=== PATIENT | male | born 1950 | race Caucasian/White ===

== ENCOUNTER 2019-07-02 06:27 | Day surgery (SDC) | payer MEDICARE, BC ==
--- NOTE | 2019-07-01 12:33 | NUR ---
EKG COMPLETE ACUTE ID/STEMI NOTED NOTIFIED ANESTHESIA-DR URRUTIA. DR PATTEN CAME SHORTLY TO RM 1. ORDERS GIVEN PLACED ON 4L NC AND CALLED PHARMACY FOR ASA 325MG. KENDALL WATSON CALLED CARDIOLOGY PER DR PATTEN REQUEST. DR PATTEN SPOKE WITH DR YOON. ST TOVAR STATED HE WAS IN A CASE AT PRESENT TIME BUT WOULD COME OVER SHORTLY.
--- NOTE | 2019-07-01 13:00 | NUR ---
ASA PO GIVEN TO PT PT HAS NO SYMPTOMS OR HX OF HEART PROBS. DR YOON CALLED TO [facility] DEPT REQUEST EKG BE FAXED TO [facility]. EKG FAXED PER RAMSES NEGRON.
--- NOTE | 2019-07-01 13:05 | NUR ---
JAMIL TO RM1 INFORMED THIS NURSE THAT KARRIE CLEARED EKG WAS A RIGHT BUNDLE BRANCH BLOCK TOOK PT TO LAB PER DR PATEL'S ORDER.
[2019-07-01 13:25] LABS: BASOPHILS 0.3 % (0-2); HEMATOCRIT 47.9 % (42.0-54.0); HEMOGLOBIN 15.6 g/dL (13.5-17.5); IMMATURE GRANULOCYTES 0.2 % (0-5); LYMPHOCYTES 33.3 % (15-50); MCH 29.4 pg (26.0-34.0); MCHC 32.6 g/dL (31.0-37.0); MCV 90.4 fL (80.0-100.0); MEAN PLATELET VOLUME 10.4 fL (7.4-10.4); MONOCYTES 6.7 % (2-11); NEUTROPHILS 54.5 % (40-80); PLATELET COUNT 162 10x3/uL (130-400); RDW 12.8 % (11.5-14.5); WBC 6.2 10x3/uL (4.8-10.8)
[2019-07-01 13:54] LABS: CALC OSMOLALITY 277 mosm/kg (275-300); CALCIUM 8.9 mg/dL (8.5-10.1); CHLORIDE - SERUM 103 mmol/L (98-107); CREATININE - SERUM 0.9 mg/dL (0.6-1.3); GLUCOSE 102 mg/dL (74-106); POTASSIUM - SERUM 4.6 mmol/L (3.5-5.1); SODIUM 140 mmol/L (136-145); UREA NITROGEN 10 mg/dL (7-18); eGFR NON AFRICAN AMERICAN 89 mL/min (90-120)
[~2019-07-02] VITALS: Ht 193 cm; Wt 80.7 kg
--- NOTE | ~2019-07-02 | OP ---
PATIENT NAME: NADIA PAYNE MEDICAL RECORD: [id number] :52 LOCATION:D.OPS ADMISSION DATE: SURGEON: MANISH PATEL MD DATE OF OPERATION: 07/02/2019 PREOPERATIVE DIAGNOSIS: Left inguinal hernia. POSTOPERATIVE DIAGNOSIS: Left inguinal hernia. PROCEDURE: Left inguinal hernia repair with medium PHS mesh. SURGEON: Manish Patel MD REPORT OF PROCEDURE: The patient's left groin was prepped and draped in sterile fashion. An oblique incision was made above the inguinal ligament. Electrocautery was used to dissect through the subcutaneous tissues down to the external oblique fascia. This fascia was opened up to the external ring using electrocautery. The spermatic cord was elevated and a [place] was placed around it. We then found the ilioinguinal nerve and this was high ligated. The patient had an indirect hernia defect and this was dissected free from the spermatic cord. We pushed this back into the abdominal cavity. An opening was then made in the inguinal floor and the preperitoneal space of Retzius was opened up in all directions. A medium PHS mesh was inserted and sutured down on all sides using multiple interrupted 0 Vicryl. The wound was then irrigated out with normal saline and care was taken to assure there was no sign of any bleeding. The external oblique fascia was then closed with running 2-0 Vicryl, Luis Alberto's was closed with interrupted 3-0 Vicryl and the skin was closed with running subcutaneous 5-0 Monocryl. A 10 mL of 0.25% Marcaine with epinephrine was infused into the surrounding tissues. The wound was dressed appropriately. COMPLICATIONS: None. CONDITION: Stable. ANESTHESIA: General endotracheal and local. BLOOD LOSS: Minimal. TRANSINT:[id number] Voice Confirmation ID: [id number] DOCUMENT ID: [id number] MANISH PATEL MD CC: MENA RIVERA MD [id number] DICTATION DATE: 07/02/19909 [facility] [facility] OPERATOR: 07/02/19 1145 [place] [id number] [place] [id number]
[2019-07-02 07:13] VITALS: BP 138/85; Ht 193 cm; Wt 80.7 kg
[2019-07-02] MEDS ORDERED: HYDROCODON-ACE1 EA10 PO (09:06)
--- NOTE | 2019-07-02 09:53 | NUR ---
0952-FULL LIQUID TRAY TO ROOM.
--- NOTE | 2019-07-02 11:27 | NUR ---
1030-TOLERATED TRAY. NO N/V. DRESSING CDI. VSS. ABD SOFT NON DISTENDED. UNABLE TO VOID AT THIS TIME
--- NOTE | 2019-07-02 13:20 | NUR ---
1245-PT HAS VOIDED SMALL AMOUNT. REPORTS HE DIDN'T FEEL LIKE HE WAS ABLE TO GO HE SHOULD HAVE.
--- NOTE | 2019-07-02 13:21 | NUR ---
1315-DISCHARGE CRITERIA MET. REMOVED IV. DISPOSED CATH INTO SHARPS.COVERED SITE WITH BANDAID. REVIEWED POST OPERATIVE INSTRUCTIONS. VERBALIZED UNDERSTANDING. ESCORTED OUT VIA W/C WITH FRIEND AWAITING TO DRIVE HOME
== END 2019-07-02 13:15 | disposition home or self-care (01) ==
LOC: D.OPS 06:27 → D.PAN 08:30 → D.OPS 08:30
PROVIDERS: ATTEND Surgery
DX: K40.90 Unilateral inguinal hernia, without obstruction or gangrene, not specified as recurrent (principal)

== ENCOUNTER 2019-07-07 13:45 | Emergency (ER) | payer MEDICARE, BC, OTHER ==
[~2019-07-07] VITALS: Ht 195.6 cm; Wt 81.8 kg
[~2019-07-07 13:45] MED LIST: HYDROCODON-ACE1 EA10 PO
[2019-07-07 14:04] VITALS: Ht 195.6 cm; Wt 81.8 kg
[2019-07-07 14:29] LABS: BASOPHILS 0.3 % (0-2); EOSINOPHILS 0.6 % (0-7); HEMATOCRIT 41.6 % (42.0-54.0); HEMOGLOBIN 13.4 g/dL (13.5-17.5); IMMATURE GRANULOCYTES 0.1 % (0-5); LYMPHOCYTES 8.4 % (15-50); MCH 29.5 pg (26.0-34.0); MCHC 32.2 g/dL (31.0-37.0); MCV 91.4 fL (80.0-100.0); MEAN PLATELET VOLUME 9.6 fL (7.4-10.4); MONOCYTES 7.2 % (2-11); NEUTROPHILS 83.4 % (40-80); PLATELET COUNT 144 10x3/uL (130-400); RBC 4.55 10x6/uL (4.20-6.10); WBC 7.9 10x3/uL (4.8-10.8)
[2019-07-07 14:40] LABS: ANION GAP 15.6 mmol/L (8-16); CARBON DIOXIDE 30.4 mmol/L (21.0-32.0); CREATININE - SERUM 1.3 mg/dL (0.6-1.3)
[2019-07-07 14:46] LABS: ALBUMIN 3.7 g/dL (3.4-5.0); BILIRUBIN - TOTAL 1.47 mg/dL (0.2-1.3); PROTEIN - SERUM 7.6 g/dL (6.4-8.2)
[2019-07-07 15:38] LABS: BILIRUBIN NEGATIVE (NEGATIVE); GLUCOSE NEGATIVE (NEGATIVE); KETONE MODERATE mg/dL (NEGATIVE); NITRITE NEGATIVE (NEGATIVE); SPECIFIC GRAVITY 1.015 (1.005-1.020); UROBILINOGEN NORMAL (NORMAL)
[2019-07-07 15:42] LABS: BACTERIA FEW /hpf (NEGATIVE); RED CELLS - URINE >50 /hpf (0-5); WHITE CELLS - URINE 0-5 /hpf (NEGATIVE)
[2019-07-07] MEDS ORDERED: FLOMAX0.4 MG PO (16:55)
[2019-07-07] MEDS ORDERED: CHRONULAC30 ML PO (16:55)
[2019-07-07 18:03] VITALS: BP 143/65
== END 2019-07-07 18:25 | disposition home or self-care (01) ==
LOC: D.ER 13:45
PROVIDERS: Family Medicine
DX: N40.1 Benign prostatic hyperplasia with lower urinary tract symptoms (principal); R33.8 Other retention of urine; E86.0 Dehydration; K59.00 Constipation, unspecified; R93.5 Abnormal findings on diagnostic imaging of other abdominal regions, including retroperitoneum; I25.2 Old myocardial infarction; Z98.890 Other specified postprocedural states

== ENCOUNTER → 2019-08-17 21:00 | Outpatient (CLI) | payer MEDICARE, BC, OTHER ==
[2019-07-07 14:04] VITALS: BMI 21.4
[~2019-08-17 21:00] MED LIST changes: +CHRONULAC30 ML PO; +FLOMAX0.4 MG PO
== END | disposition home or self-care (01) ==
LOC: D.LABREF 21:00
PROVIDERS: ATTEND Urology
DX: R82.90 Unspecified abnormal findings in urine (principal); R31.9 Hematuria, unspecified